=== PATIENT | female | born 1995 | race Two or more races ===

== ENCOUNTER 2022-09-06 06:51 | Emergency (ER) | payer OTHER ==
[~2022-09-06] VITALS: Ht 165.1 cm; Wt 68.0 kg
[2022-09-06] MEDS ORDERED: A AND D OINTM42.5 GM TOP (09:02)
[2022-09-06] MEDS ORDERED: METRONIDAZOLE500 MG PO (09:02)
== END 2022-09-06 09:12 | disposition home or self-care (01) ==
LOC: ER 06:51
DX: N75.8 Other diseases of Bartholin's gland (principal)